=== PATIENT | female | born 2000 | race Caucasian/White ===

== ENCOUNTER 2019-12-28 09:27 | Outpatient (CLI) | payer OTHER, SELFPAY ==
--- NOTE | ~2019-12-28 | US_ITS ---
EXAMINATION: US breast RT complete HISTORY: Palpable lump of the lower inner right breast TECHNIQUE: Complete right breast ultrasound is performed. FINDINGS: There is a 2.2 x 1.1 cm oval, circumscribed, parallel, hypoechoic mass with posterior enhan cement and no internal vascularity at the 3:30 location 6 cm from the nipple corresponding to the pal pable abnormality of concern. No additional cystic or solid mass is identified. 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 Follow-up targeted right br east ultrasound in six months is recommended. BI-RADS category 3, probably benign findings. Reviewed, dictated and finalized at location A. 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 Follo w-up targeted right breast ultrasound in six months is recommended. BI-RADS category 3, probably benign findings.
== END 2019-12-28 09:28 | disposition home or self-care (01) ==
PROVIDERS: PCP Pediatrics; Visit Provider Nurse Practitioner Obstetrics & Gynecology
DX: N63.0 Unspecified lump in unspecified breast (principal); R92.8 Other abnormal and inconclusive findings on diagnostic imaging of breast
CPT/HCPCS: 76641

== ENCOUNTER 2022-04-23 18:25 | Emergency (ER) | payer OTHER, SELFPAY ==
[2022-04-23 18:35] VITALS: BP 106/87; PULSE 81; RESP 16; TEMP 37.4; O2SAT 100
--- NOTE | 2022-04-23 18:44 | ED.SKABFB ---
HPI - Skin/Abscess/Foreign Bdy General Chief complaint: Skin/Abscess/Foreign Body Stated complaint: ringworm on cheek Time Seen by Provider: 04/23/22 18:40 Source: patient and RN notes reviewed Mode of arrival: ambulatory Limitations: no limitations History of Present Illness HPI narrative: 21-year-old female presents with concern for a rash on her face. She reports noticing a small circular area on her right cheek. She reports she just noticed this area today. She denies any other similar rash on her body. She reports the area is slightly itchy. She denies any intervention. complaint: rash Related Data Home Medications Medication Instructions Recorded Confirmed dasatinib 100 mg tablet (Sprycel) 100 mg PO DAILY 04/23/22 04/23/22 prednisone 5 mg tablet 5 mg PO DAILY 04/23/22 04/23/22 Allergies Allergy/AdvReac Type Severity Reaction Status Date / Time trimethoprim Allergy Unknown Verified 08/28/14 15:41 PRIMSOL Allergy Mild Uncoded 12/19/08 16:49 Review of Systems Review of Systems: CONSTITUTIONAL: Denies malaise, chills, sweats, or fever. EYES: Denies redness, or discharge. ENT: Denies rhinorrhea, congestion, swollen lips, swollen tongue CARDIOVASCULAR: Denies chest pain, palpitations, or edema. RESPIRATORY: Denies cough or dyspnea. GASTROINTESTINAL: Denies abdominal pain, nausea, vomiting SKIN: Reports rash on her right cheek MUSCULOSKELETAL: Denies joint pain or myalgia. NEUROLOGIC: Denies headache. All systems reviewed & are unremarkable except as noted in HPI and below PMFSH Social History Social History Smoking status: Never smoker Alcohol intake: never Comments At time of signature, agree with nursing past medical, surgical, social and family history. There is no relevant family history pertinent to the presenting complaint Exam Narrative: GENERAL: Well-appearing, well-nourished, and in no acute distress. HEAD: Normocephalic, atraumatic. EYES: PERRLA, conjunctivae clear, and EOMI. ENT: Mucous membranes moist. Oropharynx without edema, erythema or lesions. NECK: Supple. No lymphadenopathy CHEST: Clear to auscultation. No respiratory distress. HEART: Regular rate and rhythm. SKIN: Warm, dry. 1.5 cm annular patch of erythematous plaque noted to the right cheek NEURO: Alert and oriented x3. PSYCH: Normal mood and affect Course Course Emergency Course: Patient is aware of diagnosis, understands and agrees to treatment plan. Anticipatory guidance given. Patient agrees to follow-up as directed and is aware of reasons to seek care at the emergency department. Portions of this record may have been created with voice recognition software Level of Care: Express Care Visit Vital Signs Vital signs: Vital Signs Temperature 99.3 F 04/23/22 18:35 Pulse Rate 81 04/23/22 18:35 Respiratory Rate 16 04/23/22 18:35 Blood Pressure 106/87 04/23/22 18:35 Pulse Oximetry 100 04/23/22 18:35 Oxygen Delivery Room Air 04/23/22 18:35 Temperature 99.3 F 04/23/22 18:35 Pulse Rate 81 04/23/22 18:35 Respiratory Rate 16 04/23/22 18:35 Blood Pressure 106/87 04/23/22 18:35 Pulse Oximetry 100 04/23/22 18:35 Oxygen Delivery Room Air 04/23/22 18:35 Reviewed. MDM - Skin/Abscess/Foreign Bdy MDM Narrative Medical decision making narrative: Does not appear at this time to be erythema multiforme, bullous, SJS, TEN; no evidence at this time to suggest RMSF, endocarditis or Lyme disease; patient looks well, nontoxic and is tolerating oral intake; no neurologic signs or symptoms; no headache, photophobia or neck pain; afebrile; appropriate for initial outpatient treatment; discussed the importance of follow-up, patient agrees; question, viral exanthema, contact dermatitis, allergic dermatitis, eczema, urticaria, tinea. No soft palate or uvula edema, no tongue, lip edema or other mucosal involvement, no respiratory compromise, no stridor, no wheezing, no wheezing, no history of s
== END 2022-04-23 18:54 | disposition home or self-care (01) ==
PROVIDERS: Emergency Provider Nurse Practitioner
DX: B35.4 Tinea corporis (principal); G70.00 Myasthenia gravis without (acute) exacerbation
CPT/HCPCS: 99213; G0463